=== PATIENT | female | born 1990 | race Caucasian/White ===

== ENCOUNTER 2022-02-11 09:25 | Outpatient (CLI) | payer OTHER | END 2022-02-11 10:07 | disposition home or self-care (01) | LOC: NST 09:25 | PROVIDERS: ATTEND Obstetrics & Gynecology | DX: Z34.83 Encounter for supervision of other normal pregnancy, third trimester (principal) ==

== ENCOUNTER 2022-02-17 09:14 | Inpatient (IN) | payer OTHER ==
[~2022-02-17] VITALS: Ht 170.2 cm; Wt 90.7 kg
[2022-02-17] MEDS ORDERED: PRENATAL TABLE1 EAC3 PO (10:25)
== END 2022-02-19 12:58 | disposition home or self-care (01) | DRG 807 ==
LOC: OB/GYN 09:14 → LDR 09:14 → OB/GYN 17:03
PROVIDERS: ADMIT Obstetrics & Gynecology; ATTEND Obstetrics & Gynecology
PROC: 10E0XZZ Delivery of Products of Conception, External Approach (ICD-10-PCS; principal; 2022-02-17)
PROC: 0W8NXZZ Division of Female Perineum, External Approach (ICD-10-PCS; 2022-02-17)
PROC: 4A1HXCZ Monitoring of Products of Conception, Cardiac Rate, External Approach (ICD-10-PCS; 2022-02-17)
DX: O48.0 Post-term pregnancy (principal); Z37.0 Single live birth; Z3A.41 41 weeks gestation of pregnancy; Z20.822 Contact with and (suspected) exposure to COVID-19

== ENCOUNTER → 2024-02-14 | Emergency (ER) | payer OTHER ==
[~2024-02-14] VITALS: Ht 170.2 cm; Wt 77.1 kg
[~2024-02-14] MED LIST: AZITHROMYCIN 500 MG TABLET PO ONE; BUTALB/ACETAMINOPHEN/CAFFEINE 1 TAB TABLET PO ONE; PRENATAL TABLE1 EAC3 PO; ZITHROMAX500 MG PO
[2024-02-14 02:56] LABS: HEMATOCRIT 36.3 % (36.0-45.00); HEMOGLOBIN 12.5 g/dL (12.0-15.00); MEAN CELL VOLUME 88.6 fL (80.00-100.00); MEAN CORPUSCULAR HEMOGLOBIN 30.5 pg (27.00-32.0); MEAN CORPUSCULAR HGB CONC 34.4 g/dl (32.0-36.0); PLATELET COUNT 238 K/uL (150-450); RED CELL DISTRIBUTION WIDTH 14.7 % (11.5-14.5)
== END | disposition home or self-care (01) ==
LOC: ER 02:15
PROVIDERS: General Practice
DX: R51.9 Headache, unspecified (principal); R07.0 Pain in throat; Z20.822 Contact with and (suspected) exposure to COVID-19

== ENCOUNTER 2024-06-19 23:46 | Inpatient (IN) | payer OTHER ==
[~2024-06-19] VITALS: Ht 170.2 cm; Wt 81.6 kg
[~2024-06-19 23:46] MED LIST changes: -AZITHROMYCIN 500 MG TABLET PO ONE; -BUTALB/ACETAMINOPHEN/CAFFEINE 1 TAB TABLET PO ONE; +LOPERAMIDE HCL 2 MG CAPSULE PO ONE; +RINGERS SOLUTION,LACTATED 1,000 ML IV SCH
[2024-06-20 00:24] LABS: URINE APPEARANCE Clear; URINE BILIRRUBIN Negative (NEGATIVE); URINE BLOOD Negative; URINE COLOR Yellow; URINE GLUCOSE Negative (NEGATIVE); URINE KETONE Negative (NEGATIVE); URINE LEUKOCYTE Moderate; URINE NITRATE Negative; URINE PROTEIN Negative (NEGATIVE)
[2024-06-20 00:26] LABS: HEMATOCRIT 30.4 % (36.0-45.00); HEMOGLOBIN 10.6 g/dL (12.0-15.00); MEAN CELL VOLUME 86.4 fL (80.00-100.00); MEAN CORPUSCULAR HGB CONC 34.7 g/dl (32.0-36.0); PLATELET COUNT 191 K/uL (150-450); RED BLOOD COUNT 3.52 M/uL (4.00-6.00)
[2024-06-20 00:27] LABS: URINE BACTERIA 3784.9 uL (0.0-1933); URINE EPITHELIAL CELLS 58.2 uL (0.0-38.8); URINE RBC 4.4 uL (0.0-20.8); URINE WBC 63.8 uL (0.0-23.2)
[2024-06-20 00:34] LABS: URINE CAST 0.45 uL (0.0-1.40)
[2024-06-20 00:43] LABS: ALBUMIN 2.3 gm/dL (3.4-5.0); BILIRUBIN TOTAL 0.31 mg/dL (0.3-1.2); CALCIUM 8.6 mg/dL (8.5-10.1); CREATININE SERUM 0.51 mg/dL (0.55-1.02); GFR 139.75; GLOBULINA 4.2 G/DL (2.4-3.5); POTASSIUM 3.29 mEq/L (3.5-5.1); TOTAL PROTEIN 6.5 gm/dL (6.4-8.2)
[2024-06-20] MEDS ORDERED: ONDANSETRON HCL 2 MG/ML VIAL IV SCH (01:00)
[2024-06-20] MEDS ORDERED: FAMOTIDINE/PF 20 MG/2 ML VIAL IV SCH ×2 (01:06→05:00)
[2024-06-20] MEDS ORDERED: PRENATAL TABLE1 EAC1 PO (01:48)
[2024-06-20] MEDS ORDERED: LOPERAMIDE HCL 2 MG CAPSULE PO SCH (06:00)
== END 2024-06-21 09:23 | disposition home or self-care (01) | DRG 833 ==
LOC: LDR
PROVIDERS: ADMIT Obstetrics & Gynecology Maternal & Fetal Medicine; ATTEND Obstetrics & Gynecology Maternal & Fetal Medicine
PROC: 4A1HXCZ Monitoring of Products of Conception, Cardiac Rate, External Approach (ICD-10-PCS; principal; 2024-06-19)
PROC: BW40ZZZ Ultrasonography of Abdomen (ICD-10-PCS; 2024-06-20)
DX: O26.893 Other specified pregnancy related conditions, third trimester (principal); Z3A.33 33 weeks gestation of pregnancy; Z20.822 Contact with and (suspected) exposure to COVID-19

== ENCOUNTER 2025-07-10 10:50 | Emergency (ER) | payer OTHER ==
[~2025-07-10] VITALS: Ht 170.2 cm; Wt 71.7 kg
[~2025-07-10 10:50] MED LIST changes: -LOPERAMIDE HCL 2 MG CAPSULE PO ONE; +PRENATAL TABLE1 EAC1 PO; -RINGERS SOLUTION,LACTATED 1,000 ML IV SCH
[2025-07-10] MEDS ORDERED: ONDANSETRON HCL 2 MG/ML VIAL IV ONE (11:45)
[2025-07-10] MEDS ORDERED: OSELTAMIVIR PHOSPHATE 75 MG CAPSULE PO ONE (11:45)
[2025-07-10] MEDS ORDERED: FAMOtidine 10 MG/ML (4ML VIAL) IV ONE (11:45)
[2025-07-10] MEDS ORDERED: 0.9 % SODIUM CHLORIDE 1,000 ML IV ONE (11:45)
[2025-07-10 12:30] LABS: BASO % 0.2 % (0.1-1.2); EOS # 0.07 (0.04-0.54); EOS % 0.6 % (0.7-7.0); LYMPH # 2.51 (1.18-3.74); LYMPH % 20.9 % (19.3-53.1); MEAN PLATELET VOLUME 10.20 fl (9.4-12.4); MONO # 0.71 (0.24-0.82); MONO % 5.9 % (4.7-12.5); NEUT # 8.67 (1.56-6.13); NEUT % 72.1 % (34.0-71.1); RED CELL DISTRIBUTION WIDTH 12.8 % (11.6-14.4)
[2025-07-10 13:15] LABS: ALT/SGPT 13.0 U/L (12-78); AST/SGOT 12.0 U/L (15-37); BILIRUBIN TOTAL 0.42 mg/dL (0.3-1.2); BUN CREA RATIO 22.0 (7.0-25.0); CREATININE SERUM 0.82 mg/dL (0.55-1.02); GFR 80.28; GLOBULINA 4.5 G/DL (2.4-3.5); GLUCOSE FASTING 105.0 mg/dL (65-100); OSMOLALITY SERUM 284.0 MOSM/KG (275-295)
[2025-07-10 13:24] LABS: COVID-19 AG NEGATIVE (NEGATIVE)
[2025-07-10] MEDS ORDERED: ZOFRAN8 MG PO (13:42)
[2025-07-10] MEDS ORDERED: AZITHROMYCIN500 MG PO (13:42)
[2025-07-10] MEDS ORDERED: PEPCID AC20 MG PO (13:42)
== END 2025-07-10 13:47 | disposition home or self-care (01) ==
LOC: ER 10:50
PROVIDERS: General Practice
DX: K29.70 Gastritis, unspecified, without bleeding (principal); Z20.822 Contact with and (suspected) exposure to COVID-19